=== PATIENT | male | born 1995 | race African-American/Black ===

== ENCOUNTER 2017-03-26 13:04 | Emergency (ER) | payer OTHER ==
[~2017-03-26] VITALS: Ht 175.3 cm; Wt 79.4 kg
[2017-03-26 13:11] VITALS: BP 128/76
--- NOTE | 2017-03-26 13:15 | NUR ---
PATIENT PRESENTS TO ED WITH S/P SEIZURE, NO POST-ICTAL . PT STATES USUALLY HAS 2-3 SEIZURE EPISODES/WEEK . DENIES N/V/D; SKIN IS PINK/WARM/DRY; AAOX4 WITH EVEN AND STEADY GAIT; LUNGS CLEAR BL; HR EVEN AND REGULAR; PT DENIES ANY FEVER, CP, SOB, OR COUGH AT THIS TIME; PATIENT STATES PAIN OF 0/10 AT THIS TIME; VSS; PATIENT POSITIONED FOR COMFORT; HOB ELEVATED; BEDRAILS UP X2; BED DOWN. ER MD MADE AWARE OF PT STATUS. SEIZURE PADS PLACED
[2017-03-26] MEDS ORDERED: KEP500 PO (13:16)
[2017-03-26] MEDS ORDERED: levETIRAcetam 500 MG TAB PO ONE (13:20)
--- NOTE | 2017-03-26 13:22 | NUR ---
BIB EMS FROM FIELD FOR SEIZURE AWAKE AND ALERT ON ARRIVAL. PT STATES IM IN MY JOB SITE,HX SEIZURE . DENIES N/V/D; SKIN IS PINK/WARM/DRY; AAOX4 WITH EVEN AND STEADY GAIT; LUNGS CLEAR BL; HR EVEN AND REGULAR; PT DENIES ANY FEVER, CP, SOB, OR COUGH AT THIS TIME; PATIENT STATES PAIN OF 0/10 AT THIS TIME; PATIENT POSITIONED FOR COMFORT; HOB ELEVATED; BEDRAILS UP X2; BED DOWN. PT AAO,
--- NOTE | 2017-03-26 13:54 | NUR ---
DR. JIMENEZ AT BEDSIDE
[2017-03-26 14:20] VITALS: BP 130/78
--- NOTE | 2017-03-26 14:21 | NUR ---
Patient discharged with v/s stable. Written and verbal after care instructions given and explained TO CAREGIVER. Patient verbalized understanding. Ambulatory with steady gait. All questions addressed prior to discharge. Advised to follow up with PMD.
== END 2017-03-26 14:21 | disposition home or self-care (01) ==
LOC: EDBD 13:04 → MED 13:04
DX: G40.909 Epilepsy, unspecified, not intractable, without status epilepticus (principal)
CPT/HCPCS: 99283